=== PATIENT | male | born 1975 | race Caucasian/White ===

== ENCOUNTER 2022-02-09 19:37 | Emergency (ER) | payer BC, SELFPAY ==
--- NOTE | ~2022-02-09 | XR_ITS ---
EXAMINATION: XR HAND, RIGHT CLINICAL INFORMATION: Pain, trauma to the right thumb COMPARISON: None TECHNIQUE: PA, lateral, and oblique views of the right hand. FINDINGS: The bones and soft tissues are normal. No fracture. Alignment is anatomic. Joint spaces are maintained. No erosions or soft tissue calcifications. XR/XR hand RT 2V IMPRESSION: Normal right hand.
[2022-02-09 19:46] VITALS: BP 133/81; PULSE 62; RESP 20; TEMP 36.5; O2SAT 98; BMI 27.0
--- NOTE | 2022-02-09 21:58 | ED_ITS ---
HPI - Extremity Problem General Chief complaint: Extremity Problem Stated complaint: thumb inj Time Seen by Provider: 02/09/22 21:58 Source: patient Mode of arrival: ambulatory Limitations: no limitations History of Present Illness HPI Narrative: 46-year-old male came in for evaluation of right thumb injury. Right thumb was jammed in the car door causing pain in the right thumb, been complaining of throbbing of the right thumb was feeling numbness. Review of Systems Review of Systems: All other systems are reviewed and are negative Constitutional: Reports as per HPI and Reports no additional constitutional complaints Eyes: Reports as per HPI and Reports no additional eye complaints Reports system reviewed and no additional complaints, except as documented Cardiovascular: Reports as per HPI and Reports no additional cardiovascular complaints Respiratory: Reports as per HPI and Reports no additional respiratory complaints Gastrointestinal: Reports as per HPI and Reports no additional gastrointestinal complaints Genitourinary: Reports no additional female genitourinary complaints Musculoskeletal: Reports no additional musculoskeletal complaints Skin/Breast: Reports system reviewed and no additional complaints, except as docu Psychiatric: Reports no additional psychiatric complaints Endocrine: Reports no additional endocrine complaints Hematologic/Lymphatic: Reports no additional hematologic/lymphatic complaints Allergic/Immunologic: Reports no additional allergic/immunologic complaints Reports system reviewed and no additional complaints, except as documented and Reports Abnormal speech present [facility] Social History Social History Advance Directives: No Advance Directives Information Provided: No Physical Exam Vital Signs: Vital Signs: Last Vital Signs Temp 97.7 F 02/09/22 19:46 Pulse 62 02/09/22 19:46 Resp 20 02/09/22 19:46 BP 133/81 02/09/22 19:46 Pulse Ox 98 02/09/22 19:46 O2 Del Method 02/09/22 19:46 BMI result Body Mass Index 27.0 Vital signs have been reviewed as appeared to be correct. Blood pressure normal. Heart rate normal. Respiration rate normal. Temperature normal. Oxygen saturation normal. Appearance: Alert. Oriented X3. No acute distress. Head: Normal external exam. Normocephalic. Atraumatic. No Jones signs noted. No raccoon eyes noted Eyes: PERRLA. EOMI. Conjunctiva and sclera normal. Eyelids normal. ENT: TM's Normal. Pharynx normal. Uvula midline. Moist mucous membranes. No trismus noted. No drooling noted. No muffled voice noted. Neck: Normal inspection. Neck supple. FROM. No adenopathy. Thyroid Normal. No meningeal signs. No neck mass noted. CVS: Normal heart rate and rhythm. Heart sound normal. No murmurs noted. Pulses normal throughout. Respiratory: No respiratory distress. Painless inspiration. Breath sounds normal. No wheezes/rales/rhonchi noted. Chest nontender. No accessory muscle usage noted or decreased air movement noted. Abdomen: Soft and nontender. Bowel sounds normal in all 4 quadrants. No distention noted. No organomegaly noted. No visible injury noted. Back: No CVA tenderness. Full range of motion noted. Skin: Skin warm and dry. Normal skin color. Normal skin turgor. No rashes/lesions/lacerations noted. Extremities: Subungual hematoma to the right thumb, otherwise no deformity, no swelling. Neuro: Oriented X 3. Cranial nerve exam: II-XII are grossly intact No motor deficit. No sensory deficit. Reflexes normal. Course Course Course Narrative: Right thumb subungual hematoma status post subungual hematoma drainage, no fracture on x-ray. MDM - Extremity (Nontraumatic) Imaging Data Right hand x-ray: Attestation: I personally reviewed and interpreted this imaging study as follows: Radiologist's impression: Normal right hand. Procedures Nail Trephination Time out: Yes Location (finger): right and thumb Sterile prep: betadine Method of drainage: nail cautery Procedure successful: Yes Patient tolerated procedure: No Complications Discharge Plan Discharge Clinical Impression: Hematoma, subungual, thumb, right Patient Disposition: Home, Self-Care Instructions: Subungual Hematoma (ED) Referrals: Sly Sales MD [Primary Care Provider] -
== END 2022-02-09 22:30 | disposition home or self-care (01) ==
PROVIDERS: Emergency Provider Emergency Medicine; PCP Internal Medicine
DX: S60.111A Contusion of right thumb with damage to nail, initial encounter (principal); W23.0XXA Caught, crushed, jammed, or pinched between moving objects, initial encounter; Y93.89 Activity, other specified; Y92.810 Car as the place of occurrence of the external cause; Y99.9 Unspecified external cause status
CPT/HCPCS: 11740; 73120; 99282; 99284

== ENCOUNTER 2022-07-12 10:23 | Outpatient (REF) | payer BC, SELFPAY ==
[2022-07-12 10:57] LABS: Hematocrit 44.1 % (42.0-52.0); Hemoglobin 14.9 g/dl (14.0-18.0); Mean Corpuscular HGB Conc 33.8 g/dl (31.0-36.0); Mean Corpuscular Hemoglobin 29.7 pg (27.0-33.0); Mean Corpuscular Volume 87.8 fL (80.0-98.0); Mean Platelet Volume 9.8 fL (9.4-12.4); Platelet Count 282 X10*3/uL (160-400); Red Blood Count 5.02 X10*6/uL (4.60-5.80); Red Cell Distribution Width 12.2 % (11.0-16.0); White Blood Count 5.9 X10*3/uL (4.8-10.8)
[2022-07-12 11:00] LABS: Appearance Urine Cloudy; Color Urine Yellow; Glucose Urine UA Negative (Negative); Leukocyte Esterase Urine Negative (Negative); Nitrite Urine Negative (Negative); PH 8.5 (5.0-9.0); Urine Blood Negative (Negative); Urine Ketones Negative (Negative); Urine Protein Trace mg/dL (Neg-Trace)
[2022-07-12 11:22] LABS: Band Neutrophils Percent 1 % (3-5); Eosinophils Absolute Manual 0.1 X10*3/uL (0.0-0.4); Eosinophils Percent Manual 1 % (0-4); Lymphocytes Absolute Manual 1.6 X10*3/uL (1.2-4.9); Lymphocytes Percent Manual 27 % (20-40); Metamyelocytes Absolute 0.1 X10*3/uL; Metamyelocytes Percent 1 %; Monocytes Absolute Manual 0.5 X10*3/uL (0.1-1.2); Monocytes Percent Manual 9 % (2-11); Myelocytes Absolute 0.1 X10*/uL; Myelocytes Percent 1 %; Neutrophils Absolute Manual 3.6 X10*3/uL (2.0-8.3); Neutrophils Percent Manual 60 % (45-73)
[2022-07-12 11:25] LABS: Burr Cells 1+ (0-2) /OIF
[2022-07-12 11:26] LABS: Alanine Aminotransferase 12 U/L (0-40); Albumin Level 4.7 g/dL (3.5-5.0); Anion Gap 11 (12-20); Aspartate Amino Transferase 14 U/L (5-37); Bilirubin Total 0.7 mg/dL (0.0-1.0); Blood Urea Nitrogen 14 mg/dL (9-16); Calcium 9.4 mg/dL (8.4-10.2); Carbon Dioxide 29 mmol/L (22-29); Chloride 105 mmol/L (96-108); Estimated Glomerular Filt Rate > 60; Glucose Fasting 95 mg/dL (60-99); Platelet Estimate NORMAL (NORMAL); Platelet Morphology Comment NORMAL; Potassium 4.3 mmol/L (3.3-5.1); RBC Morphology NOTED; Sodium 141 mmol/L (135-145); Total Protein 7.1 g/dL (6.5-8.0)
[2022-07-12 11:27] LABS: Alkaline Phosphatase 69 U/L (39-117); Cholesterol 167 mg/dL; HDL Cholesterol 42 mg/dL; LDL Cholesterol Calculated 110 mg/dl; Triglycerides 75 mg/dL
== END 2022-07-12 10:24 | disposition home or self-care (01) ==
LOC: HO.LAB 10:23
PROVIDERS: PCP Internal Medicine; Visit Provider Internal Medicine
DX: Z00.00 Encounter for general adult medical examination without abnormal findings (principal)
CPT/HCPCS: 36415; 80053; 80061; 81003; 85007; 85025; 85027

== ENCOUNTER 2022-10-28 11:01 | Emergency (ER) | payer BC, SELFPAY ==
[2022-10-28 11:18] VITALS: BP 116/76; PULSE 63; RESP 16; TEMP 36.7; O2SAT 98; BMI 27.9
--- NOTE | 2022-10-28 11:20 | ED.GENADULT ---
HPI - General Adult General Chief complaint: Wound/Laceration <PAUL Bronson - Last Filed: 10/28/22 12:01> Stated complaint: laceration <PAUL Bronson - Last Filed: 10/28/22 12:01> Time Seen by Provider: 10/28/22 11:28 <PAUL Bronson - Last Filed: 10/28/22 12:01> Source: patient <PAUL Verdugo - Last Filed: 10/28/22 12:40> Mode of arrival: ambulatory <PAUL Verdugo - Last Filed: 10/28/22 12:40> Limitations: no limitations <PAUL Verdugo - Last Filed: 10/28/22 12:40> History of Present Illness HPI narrative: 47 y/o female presents to the ER for evaluation of a laceration to his right lower leg after a piece of a wooden stump kicked back and grazed his leg. He reports a deep cut to the lower right leg, bleeding on arrival. Mild-moderate pain in the area, no other injuries. He cannot recall when his last tetanus shot was. <PAUL Verdugo - Last Filed: 10/28/22 12:40> MD complaint: RLE laceration <PAUL Verdugo - Last Filed: 10/28/22 12:40> Onset (ago): minute(s) <PAUL Verdugo - Last Filed: 10/28/22 12:40> Location: right and lower extremity <PAUL Verdugo - Last Filed: 10/28/22 12:40> Radiation: non-radiation <PAUL Verdugo - Last Filed: 10/28/22 12:40> Severity: moderate <PAUL Verdugo - Last Filed: 10/28/22 12:40> Severity scale (1-10): 5 <PAUL Verdugo - Last Filed: 10/28/22 12:40> Quality: aching <PAUL Verdugo Last Filed: 10/28/22 12:40> Pain Consistency: constant (improving) <PAUL Verdugo - Last Filed: 10/28/22 12:40> Associated symptoms: denies other symptoms <PAUL Verdugo - Last Filed: 10/28/22 12:40> Treatments prior to arrival: none <PAUL Verdugo - Last Filed: 10/28/22 12:40> Related Data Home medications: Previous Rx's Medication Instructions Recorded amoxicillin 875 mg-potassium 1 tab PO BID #10 tabs 10/28/22 clavulanate 125 mg tablet <PAUL Bronson - Last Filed: 10/28/22 12:01> Allergies/adverse reactions: Allergies Allergy/AdvReac Type Severity Reaction Status Date / Time No Known Allergies Allergy Verified 10/28/22 11:18 <PAUL Bronson - Last Filed: 10/28/22 12:01> Review of Systems Review of Systems: Yes all other systems are reviewed and are negative <PAUL Verdugo - Last Filed: 10/28/22 12:40> [facility] Social History Social History: Social History Advance Directives: Yes Advance Directives on File: No <PAUL Bronson - Last Filed: 10/28/22 12:01> Physical Exam ED Vital Signs: Vital Signs - 24 hr 10/28/22 11:18 Temperature 98.1 F Pulse Rate 63 Respiratory Rate 16 Blood Pressure 116/76 Pulse Oximetry 98 Oxygen Delivery Method Room Air BMI result Body Mass Index 27.9 <PAUL Bronson - Last Filed: 10/28/22 12:01> Vital Signs - 24 hr 10/28/22 11:18 Temperature 98.1 F Pulse Rate 63 Respiratory Rate 16 Blood Pressure 116/76 Pulse Oximetry 98 Oxygen Delivery Method Room Air BMI result Body Mass Index 27.9 <PAUL Verdugo - Last Filed: 10/28/22 12:40> Appearance: Alert. Oriented X3. No acute distress. HEENT: normal inspection CVS: Normal heart rate and rhythm. Pulses normal. Respiratory: No respiratory distress. Skin: Skin warm and dry. Normal skin color. Normal skin turgor. No rashes. Extremities: right lower leg with a 3cm linear laceration, abotu 2-3 mm wide, no longer bleeding. deep structures intact, cannot visualize bone. Neuro: Oriented X 3. No motor deficit. No sensory deficit. steady gait <APUL Verdugo Last Filed: 10/28/22 12:40> Course Course Course Narrative: RME performed by Razia Acevedo PA-C. Patient is a 47 year old assigned male at presenting to the emergency department with a right leg laceration. Patient will need sutures. Patient placed back in the waiting room pending room availability. <PAUL Bronson Last Filed: 10/28/22 12:01> Medications Administered Discontinued Medications Generic Name Dose Route Start Last Admin Trade Name Freq PRN Reason Stop Dose Admin Diphtheria/Tetanus/Acell Pertussis 0.5 ml 10/28/22 11:22 10/28/22 11:43 Diphth,Pertus(Acell),Tet Adult 0.5 Ml Syringe IM 10/28/22 11:23 0.5 ml .ONCE ONE Administration Lidocaine HCl 2 ml 10/28/22 11:29 10/28/22 11:44 Lidocaine Hcl 2 % Mpf 5 Ml Vial INFILTRATI 10/28/22 11:30 2 ml ONCE ONE Administration <PAUL Bronson Last Filed: 10/28/22 12:01> Medications Administered Discontinued Medications Generic Name Dose Route Start Last Admin Trade Name Freq PRN Reason Stop Dose Admin Diphtheria/Tetanus/Acell Pertussis 0.5 ml 10/28/22 11:22 10/28/22 11:43 Diphth,Pertus(Acell),Tet Adult 0.5 Ml Syringe IM 10/28/22 11:23 0.5 ml .ONCE ONE Administration Lidocaine HCl 2 ml 10/28/22 11:29 10/28/22 11:44 Lidocaine Hcl 2 % Mpf 5 Ml Vial INFILTRATI 10/28/22 11:30 2 ml ONCE ONE Administration <PAUL Verdugo Last Filed: 10/28/22 12:40> Procedures Laceration Laceration 1: Site: lower extremity <PAUL Verdugo Last Filed: 10/28/22 12:40> Side (If applicable): right <PAUL Verdugo Last Filed: 10/28/22 12:40> Size (cm): 3 <PAUL Verdugo Last Filed: 10/28/22 12:40> Description: linear <PAUL Verdugo Last Filed: 10/28/22 12:40> Depth: simple, single layer <PAUL Verdugo Last Filed: 10/28/22 12:40> Local Anesthetic: lidocaine 2% <PAUL Verdugo Last Filed: 10/28/22 12:40> Amount of anesthesia used (mL): 3 <PAUL Verdugo Last Filed: 10/28/22 12:40> Pre-repair: wound explored, irrigated extensively and deep structures intact <PAUL Verdugo Last Filed: 10/28/22 12:40> Skin layer closed with: nylon <PAUL Verdugo Last Filed: 10/28/22 12:40> Size (cm): 4-0 <PAUL Verdugo Last Filed: 10/28/22 12:40> Number of sutures: 5 <PAUL Verdugo Last Filed: 10/28/22 12:40> Technique: simple, interrupted <PAUL Verdugo Last Filed: 10/28/22 12:40> Medical Decision Making Medical Decision Making MDM Narrative: 47 yo male presenting to the ER for evaluation of RLE laceration after a wooden stump hit his leg while grinding. Tdap given. Wound irrigated with copious amounts of saline. 5 sutures were placed with good wound approximation. still start on abx for ppx. wound care discussed. stable for d/c home <PAUL Verdugo Last Filed: 10/28/22 12:40> Differential Diagnosis Differential Diagnoses: The differential diagnosis associated with the presentation includes <PAUL Verdugo Last Filed: 10/28/22 12:40> superficial laceration, deep laceration, open fracture, contaminated wound <PAUL Verdugo Last Filed: 10/28/22 12:40> External Record Review External record reviewed: Prior outpatient labs <PAUL Verdugo Last Filed: 10/28/22 12:40> Prescription Management I considered prescription management with: Pain Medication and Antibiotic <PAUL Verdugo Last Filed: 10/28/22 12:40> Critical Care Time Critical Care Time Critical Care Time: No <PAUL Verdugo - Last Filed: 10/28/22 12:40> Discharge Plan Discharge Clinical Impression: Laceration <PAUL Bronson Last Filed: 10/28/22 12:01> Patient Disposition: Home, Self-Care <PAUL Bronson Last Filed: 10/28/22 12:01> Instructions: Laceration (DC) <PAUL Bronson Last Filed: 10/28/22 12:01> Additional Instructions: You will need your stitches out in 7-10 days. See you doctor for this or come back to the ER and we will remove them. Do not get wet for 24 hours, after that you can briefly wash with soap and water then pat dry. Keep wound clean and covered when out and about, allow open to air when home and resting. Do not submerge in water, no swimming. Take the prescribed antibiotic to prevent infection. If you develop signs of infection including increased pain, swelling, redness or drainage of pus come back to the ER for further evaluation. <PAUL Bronson - Last Filed: 10/28/22 12:01> Prescriptions: New amoxicillin-pot clavulanate 875-125 mg tablet 1 tab PO BID Qty: 10 0RF <PAUL Bronson Last Filed: 10/28/22 12:01> Interventions: ED Discharge Assessment Last Done: 10/28/22 12:25 <PAUL Bronson Last Filed: 10/28/22 12:01> Discharge Date/Time: 10/28/22 12:26 <PAUL Bronson Last Filed: 10/28/22 12:01>
[2022-10-28] MEDS: Diphth,Pertus(ACell),Tet Adult 0.5 ML SYRINGE IM (11:43)
[2022-10-28] MEDS: Lidocaine HCl 2 % MPF 5 ML VIAL 2 ML INFILTRATI (11:44)
== END 2022-10-28 12:26 | disposition home or self-care (01) ==
PROVIDERS: Emergency Provider Emergency Medicine; PCP Internal Medicine
DX: S81.811A Laceration without foreign body, right lower leg, initial encounter (principal); W20.8XXA Other cause of strike by thrown, projected or falling object, initial encounter; Y93.H2 Activity, gardening and landscaping; Y92.017 Garden or yard in single-family (private) house as the place of occurrence of the external cause; Y99.9 Unspecified external cause status
CPT/HCPCS: 12002; 90471; 90715; 99282; 99284

== ENCOUNTER 2022-11-04 11:11 | Emergency (ER) | payer BC, SELFPAY ==
[2022-11-04 11:14] VITALS: BP 138/80; PULSE 63; RESP 18; TEMP 36.8; O2SAT 98; BMI 28.3
--- NOTE | 2022-11-04 11:16 | ED_ITS ---
HPI - General Adult General Chief complaint: General Medical Stated complaint: suture removal Time Seen by Provider: 11/04/22 11:13 Source: patient Mode of arrival: ambulatory Limitations: no limitations History of Present Illness HPI narrative: 47-year-old male presents for removal of 5 sutures to his right anterior salter placed a week ago taking Augmentin for prophylaxis for cellulitis. No complaints. Related Data Previous Rx's Medication Instructions Recorded amoxicillin 875 mg-potassium 1 tab PO BID #10 tabs 10/28/22 clavulanate 125 mg tablet Allergies Allergy/AdvReac Type Severity Reaction Status Date / Time No Known Allergies Allergy Verified 10/28/22 11:18 Review of Systems Review of Systems: Constitutional : No Fever, No Chills, Cardiovascular : No Chest Pain, No SOB Respiratory : No Dyspnea Gastrointestinal : No abdominal pain Musculoskeletal : No Joint Swelling Skin : No rash, positive skin laceration Neuro : No Weakness, No Numbness Psych : No SI/HI Yes all other systems are reviewed and are negative [facility] Past Medical History Attestation statement: The following information was validated with the patient. Source: old records reviewed and nursing notes reviewed Social History Social History Advance Directives: No Advance Directives Information Provided: No Physical Exam ED Vital Signs: Vital Signs - 24 hr 11/04/22 11:14 Temperature 98.2 F Pulse Rate 63 Respiratory Rate 18 Blood Pressure 138/80 Pulse Oximetry 98 Oxygen Delivery Method Room Air BMI result Body Mass Index 28.3 vss Appearance: Alert.? Oriented X3.? No acute distress.? Head: Normocephalic, atraumatic, no step-offs or deformities Eyes: Pupils equal, round and reactive to light.? Neck: Normal inspection.? Neck supple.? CVS: Normal heart rate and rhythm.? Pulses normal.? Respiratory: No respiratory distress.? Breath sounds normal.? Abdomen: Soft and nontender.? Skin: Skin warm and dry.? Normal skin color.? Normal skin turgor.? + 5 sutures to right anterior salter Extremities: No lower extremity edema.? No calf ttp. 5/5 strength to bilateral upper and lower extremities Neuro: Oriented X 3.? No motor deficit.? No sensory deficit. CN 2-12 intact Course Reevaluation(s) Reevaluation #1: Suture successfully removed patient tolerated it well Medical Decision Making Medical Decision Making [facility] Narrative: 1120 47 year old male presents for suture removal sutures placed a week ago Physical exam with 5 intact sutures. Plan suture removal. This is likely a simple suture removal. No signs of foreign body, erythema, warmth, cellulitis or necrotizing infection Differential Diagnosis Differential Diagnoses: The differential diagnosis associated with the presentation includes This is likely a simple suture removal. No signs of foreign body, erythema, warmth, cellulitis or necrotizing infection Admission/Observation Consideration of admission/observation: Escalation of care including admission/observation considered Core Measures AMI core measures followed: Yes Measure exclusions: not indicated Discharge Plan Discharge Clinical Impression: Visit for suture removal Patient Disposition: Home, Self-Care Instructions: Stitches Removal (ED) Additional Instructions: Take your medications as prescribed. If you were prescribed antibiotics today, it is important that you take your medication to their entirety, do not skip any doses, do not finish them early. Follow-up with your primary care provider this week. Return to the emergency department with new or worsening symptoms. In case of emergency call 911 Prescriptions: No Action amoxicillin-pot clavulanate 875-125 mg tablet 1 tab PO BID Qty: 10 0RF Referrals: Sly Sales MD [Primary Care Provider] - 2 days
== END 2022-11-04 11:28 | disposition home or self-care (01) ==
PROVIDERS: Emergency Provider Emergency Medicine; PCP Internal Medicine
DX: Z48.02 Encounter for removal of sutures (principal); S81.811D Laceration without foreign body, right lower leg, subsequent encounter; X58.XXXD Exposure to other specified factors, subsequent encounter
CPT/HCPCS: 99282

== ENCOUNTER 2023-06-20 08:36 | Outpatient (REF) | payer BC, SELFPAY ==
--- NOTE | ~2023-06-20 | XR_ITS ---
EXAMINATION: XR LUMBOSACRAL SPINE CLINICAL INFORMATION: Lower back pain. COMPARISON: Radiographs dated 10/10/2016. TECHNIQUE: AP and lateral views of the lumbar spine and lateral view of the lumbosacral junction. FINDINGS: Vertebral body heights and alignment are normal. There is moderately severe anterior spondylosis at T10-T11, to the extent covered. There is mild anterior spondylosis of the L5 upper endplate. There is mild to moderate disc space narrowing at L5-S1. The remaining disc spaces are well-maintained. No acute fracture or spondylolisthesis is seen. The posterior elements are intact. The paravertebral soft tissues are unremarkable. XR/XR lumbar spine 2-3V IMPRESSION: 1. There is mild to moderate degenerative disc disease at L5-S1. 2. No acute fracture or spondylolisthesis is seen. 3. There is multi-level thoracolumbar spondylosis, most pronounced at T10-T11, where it is moderately severe.
[2023-06-20 08:52] LABS: MANUAL DIFF FLAG NO
[2023-06-20 09:55] LABS: Basophils Percent Auto 0.6 % (0-2); Eosinophils Absolute Auto 0.5 X10*3/uL (0.0-0.4); Eosinophils Percent Auto 7.6 % (0-4); Hematocrit 42.9 % (42.0-52.0); Hemoglobin 14.3 g/dl (14.0-18.0); Imm Gran Abs Auto 0.12 X10*3/uL (0.00-0.03); Imm Gran Pct Auto 1.9 % (0.0-0.4); Lymphocytes Absolute Auto 1.6 X10*3/uL (1.2-4.9); Lymphocytes Percent Auto 26.2 % (20-40); Mean Corpuscular HGB Conc 33.3 g/dl (31.0-36.0); Mean Corpuscular Hemoglobin 29.6 pg (27.0-33.0); Mean Corpuscular Volume 88.8 fL (80.0-98.0); Mean Platelet Volume 10.1 fL (9.4-12.4); Monocytes Absolute Auto 0.6 X10*3/uL (0.1-1.2); Monocytes Percent Auto 10.2 % (2-11); Neutrophils Absolute Auto 3.3 x10*3/uL (2.0-8.3); Neutrophils Percent Auto 53.5 % (45-73); Platelet Count 237 X10*3/uL (160-400); Red Blood Count 4.83 X10*6/uL (4.60-5.80); Red Cell Distribution Width 12.9 % (11.0-16.0); White Blood Count 6.2 X10*3/uL (4.8-10.8)
[2023-06-20 10:36] LABS: Alanine Aminotransferase 16 U/L (0-40); Albumin Level 4.5 g/dL (3.5-5.0); Alkaline Phosphatase 58 U/L (39-117); Anion Gap 13 (12-20); Aspartate Amino Transferase 16 U/L (5-37); Bilirubin Total 0.7 mg/dL (0.0-1.0); Blood Urea Nitrogen 15 mg/dL (9-16); Calcium 9.3 mg/dL (8.4-10.2); Carbon Dioxide 30 mmol/L (22-29); Chloride 103 mmol/L (96-108); Cholesterol 218 mg/dL (<200); Estimated Glomerular Filt Rate > 60; Glucose Fasting 88 mg/dL (60-99); HDL Cholesterol 55 mg/dL (>40); LDL Cholesterol Calculated 142 mg/dL (<100); Potassium 3.8 mmol/L (3.3-5.1); Sodium 142 mmol/L (135-145); Triglycerides 105 mg/dL (<150)
== END 2023-06-20 08:37 | disposition home or self-care (01) ==
LOC: HO.LAB 08:36
PROVIDERS: PCP Internal Medicine; Visit Provider Internal Medicine
DX: M54.50 Low back pain, unspecified (principal); M46.1 Sacroiliitis, not elsewhere classified; Z00.00 Encounter for general adult medical examination without abnormal findings
CPT/HCPCS: 36415; 72100; 80053; 80061; 85025

== ENCOUNTER 2023-10-05 07:36 | Outpatient (REF) | payer BC, SELFPAY ==
[2023-10-05 11:01] LABS: Cholesterol 173 mg/dL (<200); HDL Cholesterol 51 mg/dL (>40); LDL Cholesterol Calculated 112 mg/dL (<100); Triglycerides 51 mg/dL (<150)
== END 2023-10-05 07:37 | disposition home or self-care (01) ==
LOC: HO.HMGCLDS 07:36
PROVIDERS: PCP Internal Medicine; Visit Provider Internal Medicine
DX: E78.00 Pure hypercholesterolemia, unspecified (principal)
CPT/HCPCS: 36415; 80061

== ENCOUNTER 2024-07-02 07:42 | Outpatient (REF) | payer BC, SELFPAY ==
[2024-07-02 09:57] LABS: Appearance Urine Cloudy; Color Urine Yellow; Glucose Urine UA Negative (Negative); Leukocyte Esterase Urine Negative (Negative); Nitrite Urine Negative (Negative); Specific Gravity - Urine >= 1.030 (1.005-1.025); Urine Blood Negative (Negative); Urine Ketones Negative (Negative); Urine Protein Negative (Neg-Trace)
[2024-07-02 10:01] LABS: MANUAL DIFF FLAG NO
[2024-07-02 10:12] LABS: Basophils Percent Auto 0.5 % (0-2); Eosinophils Absolute Auto 0.1 X10*3/uL (0.0-0.4); Eosinophils Percent Auto 2.2 % (0-4); Hematocrit 42.6 % (42.0-52.0); Hemoglobin 14.1 g/dl (14.0-18.0); Imm Gran Abs Auto 0.08 X10*3/uL (0.00-0.03); Imm Gran Pct Auto 1.4 % (0.0-0.4); Lymphocytes Absolute Auto 1.7 X10*3/uL (1.2-4.9); Lymphocytes Percent Auto 30.7 % (20-40); Mean Corpuscular HGB Conc 33.1 g/dl (31.0-36.0); Mean Corpuscular Hemoglobin 29.9 pg (27.0-33.0); Mean Corpuscular Volume 90.4 fL (80.0-98.0); Mean Platelet Volume 10.5 fL (9.4-12.4); Monocytes Absolute Auto 0.6 X10*3/uL (0.1-1.2); Monocytes Percent Auto 10.6 % (2-11); Neutrophils Percent Auto 54.6 % (45-73); Platelet Count 227 X10*3/uL (160-400); Red Blood Count 4.71 X10*6/uL (4.60-5.80); Red Cell Distribution Width 13.2 % (11.0-16.0); White Blood Count 5.6 X10*3/uL (4.8-10.8)
[2024-07-02 10:32] LABS: Alanine Aminotransferase 23 U/L (0-40); Albumin Level 4.4 g/dL (3.5-5.0); Alkaline Phosphatase 58 U/L (39-117); Anion Gap 10 (12-20); Aspartate Amino Transferase 18 U/L (5-37); Bilirubin Total 0.8 mg/dL (0.0-1.0); Blood Urea Nitrogen 20 mg/dL (9-16); Calcium 9.8 mg/dL (8.4-10.2); Carbon Dioxide 30 mmol/L (22-29); Chloride 107 mmol/L (96-108); Cholesterol 182 mg/dL (<200); Estimated Glomerular Filt Rate > 60; Glucose Fasting 90 mg/dL (60-99); HDL Cholesterol 64 mg/dL (>40); LDL Cholesterol Calculated 106 mg/dL (<100); Potassium 3.8 mmol/L (3.3-5.1); Sodium 143 mmol/L (135-145); Total Protein 6.8 g/dL (6.5-8.0); Triglycerides 63 mg/dL (<150)
== END 2024-07-02 07:43 | disposition home or self-care (01) ==
LOC: HO.HMGCLDS 07:42
PROVIDERS: PCP Internal Medicine; Visit Provider Internal Medicine
DX: Z87.442 Personal history of urinary calculi (principal); K57.90 Diverticulosis of intestine, part unspecified, without perforation or abscess without bleeding
CPT/HCPCS: 36415; 80053; 80061; 81003; 85025